=== PATIENT | male | born 1950 | race Caucasian/White ===

== ENCOUNTER 2025-02-14 10:34 | Outpatient (CLI) | payer OTHER, SELFPAY ==
--- NOTE | 2025-02-14 | CA_ITS ---
APPROVED REPORT EXAM: Comprehensive 2D, Doppler, and color-flow Echocardiogram [employer]: Alma Birch RT(R) Ht: 5 ft 11 in Wt: 222lbs BSA: 2.20 BP: 132/76 mmHg Indications: AF, murmur, HTN, hyperlipidemia, THORNTON, DM, edema, hx palpitations. Patient declined ultrasound enhancing agent. M-Mode Dimensions RVDd 3.08 cm (0.9-2.6) LA Diam 3.79 cm (1.9-4.0) LVDd 5.16 cm (3.5-5.7) LVDs 3.23 cm (3.5-5.7) IVSd 1.17 cm (0.6-1.1) PWd 0.98 cm (0.6-1.1) EF (Teich) 67.10% FS 37.40% EDV (Teich) 127.20 mL ESV (Teich) 41.90 mL LV Diastology E Decel Time 237 (160-240 msec) E/A Ratio 1.6 Aortic Valve RIAN Index 0.61 cm2/m2 AoV Peak Keegan. 274.0 (50-130 cm/s) AO Peak GR. 30.20 mmHg AO Mean GR. 14.80 (<5 mmHg) AO VTI 57.9 (18-25 cm) RIAN (VTI) 1.37 (2.5-4.5 cm2) Mitral Valve MV E Max Keegan. 89.0 (40-130 cm/s) MV A Velocity 54.0 (40-130 cm/s) E/A Ratio 1.63 MV PHT 69.0 ms Left Ventricle The left ventricle is normal size. The left ventricular systolic function is hyperdynamic. There is increased LV wall thickness. Intracavitary gradient is present. No evidence of LVOT obstruction at rest. Diastolic function is indeterminate. LVEF is 70%. Right Ventricle The right ventricle is normal size. The right ventricular systolic function is normal. Atria The left atrium is mildly dilated. Right atrium is mildly dilated. There is no Doppler evidence of interatrial shunt. Aortic Valve Aortic valve is moderately thickened. Mild to moderate aortic stenosis is present. RIAN by continuity equation is 1.5 cm???. Peak velocity 2.7 m/s. Mean AV gradient 13 mmHg. Max AV gradient 36 mmHg. Trace aortic regurgitation. Mitral Valve The mitral valve leaflets are mildly thickened. No evidence of mitral valve stenosis. Trace mitral regurgitation. Tricuspid Valve The tricuspid valve leaflets are thin and pliable. Trace tricuspid regurgitation. There is insufficient TR jet to estimate RVSP. Pulmonic Valve The pulmonary valve is normal in structure. Trace pulmonic regurgitation. Great Vessels The aortic root is normal in size. The IVC is not well-visualized. Pericardium There is no pericardial effusion. Other Information Study Quality: Technically Difficult Conclusion Technically difficult study. Hyperdynamic LV systolic function (LVEF 70%). Intracavitary gradient is present. No evidence of LVOT obstruction at rest. Biatrial dilation. Mild to moderate (RIAN by continuity equation is 1.5 cm???. Peak velocity 2.7 m/s. Mean AV gradient 13 mmHg. Max AV gradient 36 mmHg). In the setting of hyperdynamic LV systolic function and presence of intracavitary gradient, further evaluation with cardiac MRI (amyloidosis protocol ) to evaluate for infiltrative cardiomyopathy vs. hypertrophic cardiomyopathy is suggested. Serial TTE evaluations for is also recommended. Electronically signed by : Obdulia Yin MD 02/20/2025 20:02:35
--- NOTE | 2025-02-14 11:21 | ECG_ITS ---
APPROVED REPORT Exam: Resting ECG HR:74 bpm ECG Measurements Heart Rate 74 AXES ID 223 P 61 QRSd 97 QRS -61 QT 390 T 38 QTc 417 Conclusion SINUS RHYTHM WITH FIRST DEGREE AV BLOCK PATTERN CONSISTENT WITH PULMONARY DISEASE LEFT ANTERIOR FASCICULAR BLOCK [QRS AXIS <= -45, QR IN I, RS IN II] ABNORMAL ECG UNCONFIRMED REPORT Electronically signed by : Castro Ruiz MD 02/14/2025 17:16:22
== END 2025-02-14 23:59 | disposition home or self-care (01) ==
LOC: RT 10:35
PROVIDERS: PCP Physician Assistant; Visit Provider Chiropractor
DX: R94.31 Abnormal electrocardiogram [ECG] [EKG] (principal); I48.91 Unspecified atrial fibrillation
CPT/HCPCS: 93005; 93306